=== PATIENT | female | born 1985 | race Caucasian/White ===

== ENCOUNTER → 2020-04-23 14:30 | Outpatient (BNVA) | payer BC, SELFPAY | PROVIDERS: PCP Internal Medicine; Visit Provider Internal Medicine Cardiovascular Disease | DX: Z76.89 Persons encountering health services in other specified circumstances (principal) ==

== ENCOUNTER → 2020-05-21 07:30 | Outpatient (REF) | payer BC, SELFPAY ==
--- NOTE | 2020-05-21 07:34 | CA_ITS ---
Transthoracic Echocardiogram Patient (Last, First, Middle): Cris Spear, Gender: Female Date of : 1985 Age: 35 Procedure Date: 05/21/2020 Procedure Type: Transthoracic Echocardiogram Location: OP Height: 170.18 cm Weight: 62.6 kg BSA: 1.73 m2 Heart Rate: bpm BP: 104 / 62 mmHg Nursing Informatics Specialist: Rosa MD: Saúl Grande MD Machine Turner: Ken Dutton MD Symptoms: Q21.1 PFO BUBBLE STUDY Study Quality: Excellent ECG Rhythm: Sinus Conclusions: - Small PFO noted with saline contrast Findings [facility] Contrast study for right to left shunting is mildly positive. Contrast study for right to left shunting is mildly positive with Valsalva maneuver. Patent foramen ovale detected using by contrast. There is shunt reversal with the release phase of the Valsalva maneuver. Prior Study Comparison Changes noted compared to prior study. PFO confirmed Updated in Other Vendor System with Status of Final Ken Dutton MD electronically signed on 05/22/2020 12:14:11 PM with status of Final
== END ==
LOC: HO.CARD 07:30
PROVIDERS: Visit Provider Internal Medicine Cardiovascular Disease
DX: Q21.1 Atrial septal defect (principal)
CPT/HCPCS: 93308

== ENCOUNTER 2021-10-27 08:53 | Outpatient (REF) | payer BC, SELFPAY ==
[2021-10-27 11:11] LABS: MANUAL DIFF FLAG NO
[2021-10-27 11:30] LABS: Basophils Percent Auto 0.5 % (0-2); Eosinophils Absolute Auto 0.1 X10*3/uL (0.0-0.4); Eosinophils Percent Auto 1.8 % (0-4); Hematocrit 40.1 % (37.0-47.0); Hemoglobin 12.8 g/dl (12.0-16.0); Imm Gran Abs Auto 0.01 X10*3/uL (0.00-0.03); Imm Gran Pct Auto 0.2 % (0.0-0.4); Lymphocytes Absolute Auto 1.9 X10*3/uL (1.2-4.9); Lymphocytes Percent Auto 30.8 % (20-40); Mean Corpuscular HGB Conc 31.9 g/dl (31.0-35.0); Mean Corpuscular Hemoglobin 28.4 pg (27.0-33.0); Mean Corpuscular Volume 88.9 fL (80.0-98.0); Mean Platelet Volume 10.5 fL (9.4-12.3); Monocytes Absolute Auto 0.5 X10*3/uL (0.1-1.2); Monocytes Percent Auto 8.6 % (2-11); Neutrophils Absolute Auto 3.6 x10*3/uL (2.0-8.3); Neutrophils Percent Auto 58.1 % (45-73); Platelet Count 226 X10*3/uL (160-400); Red Blood Count 4.51 X10*6/uL (4.20-5.50); Red Cell Distribution Width 12.5 % (11.0-16.0); White Blood Count 6.3 X10*3/uL (4.8-10.8)
[2021-10-27 11:58] LABS: Anion Gap 12 (12-20); Blood Urea Nitrogen 12 mg/dL (9-16); Calcium 9.3 mg/dL (8.4-10.2); Carbon Dioxide 25 mmol/L (22-29); Chloride 107 mmol/L (96-108); Cholesterol 180 mg/dL; Estimated Glomerular Filt Rate > 60; Glucose Fasting 91 mg/dL (60-99); HDL Cholesterol 72 mg/dL; LDL Cholesterol Calculated 98 mg/dl; Potassium 4.8 mmol/L (3.3-5.1); Sodium 139 mmol/L (135-145); Triglycerides 53 mg/dL
[2021-10-27 12:04] LABS: TSH reflex Free T4 7.89 uIU/mL (0.32-4.0); Vitamin D 25-OH Total 6.5 ng/mL (>30)
[2021-10-27 12:43] LABS: Free T4 (Free Thyroxine) 0.85 ng/dL (0.71-1.85)
== END 2021-10-27 08:54 | disposition home or self-care (01) ==
LOC: HO.HMGCLDS 08:53
PROVIDERS: Visit Provider Internal Medicine
DX: Z00.01 Encounter for general adult medical examination with abnormal findings (principal); Q21.1 Atrial septal defect; Z83.49 Family history of other endocrine, nutritional and metabolic diseases
CPT/HCPCS: 36415; 80048; 80061; 82306; 84439; 84443; 85025

== ENCOUNTER → 2021-11-18 14:04 | Outpatient (BNVA) | payer BC, SELFPAY | PROVIDERS: PCP Internal Medicine; Referring Provider Internal Medicine; Visit Provider Nurse Practitioner Family | DX: Q21.1 Atrial septal defect (principal); R00.2 Palpitations | CPT/HCPCS: 93005 ==

== ENCOUNTER 2023-01-25 11:29 | Outpatient (AMB) | payer BC, SELFPAY ==
--- NOTE | 2023-01-25 11:30 | MHC.OFFVIS ---
Intake Vital Signs 01/25/23 11:31 Height 5 ft 7 in Weight 148 lb 2.41 oz BMI 23.2 BP 106/72 Blood Pressure Location Lt brachial Position Sitting Pulse 69 Pulse Source Monitor Intake Visit Reasons: 1 Year fu per DC Intake Note: 1 year follow up with EKG. Cold Roller Required: No Accompanied by: Self / Same As Patient Allergies penicillin V Allergy (Unknown, Verified 01/25/23 11:33) hives Sulfa (Sulfonamide Antibiotics) Allergy (Unknown, Verified 01/25/23 11:33) hives Medication List - Last Reconciled 01/25/23 by Saúl Grande MD cholecalciferol (vitamin D3) 1,250 mcg PO 2XW 3 months levonorgestrel (Mirena) intrauterine HPI HPI Comments History of Present Illness Details 37-year-old female who works at the [employer] here for palpitations. She has had history of palpitations in the past which were short-lived. Now she is presenting because she has been experiencing palpitations almost daily. In the last week she has noticed multiple episodes. She said she was watching a movie and she started feeling palpitations which she describes as being aware of her heart beating. She said this was last seconds to minutes and will keep recurring for 30 minutes to an hour. No dizziness or syncope. No chest pain or shortness of breath. She is otherwise active and has no exertional symptoms. Her last episode was on Monday. Since then she has not had any more episodes. EKG reviewed showing sinus bradycardia, normal axis, nonspecific ST-T changes. QTC 416 milliseconds. she was referred for echocardiogram and a cardiac event monitor. Echocardiography showed normal biventricular function with concern for [id number] shunting. Cardiac event monitor was normal with occasional premature atrial complexes and sometimes patient's symptoms correlated with the PACs. 01/25/23: She had bubble study which confirmed PFO. She was asymptomatic and had no stroke-like symptoms and was followed by our nurse practitioner Radha. She has no symptoms on follow-up today. In particular no palpitations. She has been exercising and has no exertional issues at this point. [facility] Medical History Family history of thyroid disease in mother Left to right cardiac shunt Palpitations Vitamin D deficiency Surgical History (Updated 01/25/23 @ 11:33 by IVONNE Pollard) No pertinent past surgical history Family History Father HTN (hypertension) History of ascending aorta repair Mother HTN (hypertension) Palpitations Hypothyroidism Social History Household Members Other:: partner Housing: House Alcohol intake: current Alcohol intake frequency: holidays/special occasions only Patient Tobacco Use Status: Never used Tobacco e-Cigarette/Vaping Use: Never Used service: No Current occupational status: employed Review of Systems Const Denies weakness ENT Denies dizziness Card Denies chest pain, Denies chest pain with activity, Denies syncope, Denies rapid heart rate, Denies pedal edema, Denies edema, Denies leg edema, Denies lightheadedness, Denies palpitations, Denies dyspnea, Denies dyspnea on exertion and Denies orthopnea Resp Denies cough, Denies dyspnea and Denies dyspnea on exertion GI Denies hematochezia and Denies change in stool character Musc Denies abnormal gait, Denies muscle cramps, Denies muscle weakness, Denies numbness, Denies radiating pain into limb and Denies tingling Neuro Denies abnormal gait, Denies dizziness, Denies syncope, Denies numbness, Denies tingling and Denies weakness Endo Denies palpitations Physical Exam Vital Signs: Last Vital Signs Pulse 69 01/25/23 11:31 BP 106/72 01/25/23 11:31 BMI result Body Mass Index 23.2 GENERAL APPEARANCE: in no acute distress, well developed, well nourished. NECK/THYROID: no carotid bruit, no jugular venous distention. SKIN: no suspicious lesions, warm and dry. HEART: no murmurs, regular rate and rhythm, S1, S2 normal. LUNGS: clear to auscultation bilaterally. ABDOMEN: normal, bowel sounds present, soft, nontender, nondistended. EXTREMITIES: no clubbing, cyanosis, or edema. PERIPHERAL PULSES: equal. NEUROLOGIC: nonfocal, alert and oriented. Office Procedures EKG Details: Normal sinus rhythm 69 beats per minute, QTC 439 milliseconds. [id number], Complete Assessment & Plan Assessment & Plan (1) Palpitations: Code(s): R00.2 - Palpitations Plan Pleasant 37 year female who is here for follow-up. She was seen for palpitations and her workup revealed premature atrial complexes. This was conservatively managed and she has improved and has no symptoms on follow-up. She was found to have an asymptomatic PFO. Clinically stable and has no symptoms. She can follow up with us as needed. Thank you for allowing me to participate in the care of your patient. Please feel free to contact me if you have any questions. Coding Level of Care Code Est Pt Level 2 (18221) Diagnoses Palpitations R00.2 CPT Codes EKG - CPT: 00861-[id number], Complete ([id number])
[2023-01-25 11:31] VITALS: BP 106/72; PULSE 69; BMI 23.2
== END 2023-01-25 11:53 | disposition home or self-care (01) ==
PROVIDERS: Visit Provider Internal Medicine Cardiovascular Disease
DX: R00.2 Palpitations (principal)
CPT/HCPCS: 93010; 99212

== ENCOUNTER → 2023-01-25 11:29 | Outpatient (BNVA) | payer BC, SELFPAY | PROVIDERS: Visit Provider Internal Medicine Cardiovascular Disease | DX: R00.2 Palpitations (principal) | CPT/HCPCS: 93005 ==

== ENCOUNTER 2023-09-11 12:52 | Outpatient (AMB) | payer BC, SELFPAY ==
[2023-09-11 13:07] VITALS: BP 116/82; PULSE 72; O2SAT 99; BMI 25.1
--- NOTE | 2023-09-11 13:07 | MHC.PC.OV ---
Vital Signs 09/11/23 13:07 Height 5 ft 7 in Weight 160 lb 4 oz BMI 25.1 BP 116/82 Blood Pressure Location Rt brachial Position Sitting Pulse 72 Pulse Source Pulse Oximeter Pulse Oximetry (%) 99 Oxygen Delivery Method Room Air Intake Visit Reasons: Think thyroid has another nodule / hypothyroidism Intake Note: Pt is here today thyroid concerns, had an ultrasound sound last November. Pt states symptoms worsen. Allergies penicillin V Allergy (Unknown, Verified 09/11/23 14:30) hives Sulfa (Sulfonamide Antibiotics) Allergy (Unknown, Verified 09/11/23 14:30) hives Medication List - Last Reconciled 09/11/23 by Carol Mayes MD cholecalciferol (vitamin D3) 1,250 mcg PO 2XW 3 months levonorgestrel (Mirena) intrauterine Tobacco use date assessed: 09/11/23 Dental Screening Dental Screen Date: 09/11/23 Did you have a dental visit in the last 12 months?: Yes Did you have a dental problem in the last 6 months where you did not have access to dental care?: No Was dental information given to patient?: Patient has dentist HPI Think thyroid has another nodule / hypothyroidism HPI Details 38-year-old lady here today complaining of increased fatigue, fluctuating weight, dry skin, recurrent joint stiffness and pain accompanied by occasional hoarseness of voice which has been present now for the last several months. Patient has a thyroid nodule on the right with last ultrasound done December 13 showing a predominantly solid, isoechoic right thyroid nodule measuring approximately 1.8 x 1.5 x 1.9 cm, with a hypervascular thyroid gland noted, suggestive of thyroiditis. Her thyroid levels 11/28/2022 showed a TSH is 7.98, with free T4 0.9 and a free T3 at 2.9. She has strong family history for thyroid disorder, mother and sister both with hypothyroidism [facility] Medical History Nodule of right lobe of thyroid gland Vitamin D deficiency Family history of thyroid disease in mother Left to right cardiac shunt Palpitations Surgical History No pertinent past surgical history Family History Father HTN (hypertension) History of ascending aorta repair Mother HTN (hypertension) Palpitations Hypothyroidism Social History Household Members Other:: partner Housing: House Alcohol intake: current Alcohol intake frequency: holidays/special occasions only Patient Tobacco Use Status: Never used Tobacco e-Cigarette/Vaping Use: Never Used service: No Current occupational status: employed Cognitive needs: No Hearing needs: No Vision needs: No Questionnaire PHQ-9 Over the last 2 weeks, how often have you been bothered by any of the following problems? 1. Little interest or pleasure in doing things: not at all 2. Feeling down, depressed, or hopeless: not at all 3. Trouble falling or staying asleep, or sleeping too much: not at all 4. Feeling tired or having little energy: more than half the days 5. Poor appetite or overeating: not at all 6. Feeling bad about yourself - or that you are a failure or have let yourself or your family down: not at all 7. Trouble concentrating on things, such as reading the newspaper or watching television: not at all 8. Moving or speaking so slowly that other people could have noticed. Or the opposite - being so fidgety or restless that you have been moving around a lot more than usual: not at all 9. Thoughts that you would be better off or of hurting yourself in some way: not at all Total score: 2 Depression Screening Interpretation: Negative Depression Screening Done: Yes 12510 - PHQ-9 Billing: Yes Source: Developed by Drs. Memo Blanco, Hayley Vines, Ney Ngo and colleagues, with an educational jody from [employer]. Thrive Questionnaire Date Thrive assessed: 09/11/23 I am a: Patient What is your living situation today?: I have a steady place to live Within the past 12 months, did the food you bought not last and you didn't have the money to get more?: Never true Within the past 12 months, did you worry whether your food would run out before you got money to buy more?: Never true Do you have trouble paying for medicines?: No Do you have trouble getting transportation to medical appointments?: No Do you have trouble paying your heating and electricity bill?: No Do you have trouble taking care of your child, family member or friend?: No Do you have trouble with day-to-day activities such as bathing, preparing meals, shopping, managing finances, etc.?: No Are you currently unemployed and looking for a job?: No Are you interested in more education?: No Please select the resources that you would like help with: None Currently or been in a relationship where the following occur: no concerns reported THRIVE Score: 0 CHEIKH-7 AMB Questionnaire CHEIKH-7 Date CHEIKH - 7 assessed: 09/11/23 Feeling nervous, anxious, or on edge: 0 = Not at all Not being able to stop or control worryin = Not at all Worrying too much about different things: 0 = Not at all Trouble relaxin = Not at all Being so restless that it is hard to sit still: 0 = Not at all Becoming easily annoyed or irritable: 0 = Not at all Feeling afraid as if something awful might happen: 0 = Not at all Total CHEIKH-7 score (0-4 normal; 5-9 mild; 10-14 moderate; 15-21 severe): 0 Source: Developed by Drs. Memo Blanco, Hayley Vines, Ney Ngo and colleagues, with an educational jody from [employer]. CHEIKH-7 Assessment Billing CHEIKH-7 Assessment Tool: CHEIKH-7 Assessment 60990 Review of Systems Const Denies weakness ENT Denies dizziness Card Denies chest pain, Denies syncope, Denies rapid heart rate, Denies edema, Denies lightheadedness, Denies palpitations, Denies dyspnea and Denies dyspnea on exertion Resp Denies cough, Denies dyspnea and Denies dyspnea on exertion GI Denies change in stool character Reports no additional complaints Musc Denies abnormal gait, Denies muscle cramps, Denies muscle weakness, Denies numbness, Denies radiating pain into limb and Denies tingling Skin/Breast Reports as per HPI Neuro Denies abnormal gait, Denies dizziness, Denies syncope, Denies numbness, Denies tingling and Denies weakness Psych Reports no additional complaints Endo Denies palpitations Janak/Lymph Reports no additional complaints Aller/Immun Reports no additional complaints Physical exam (Primary Care) Vital Signs: Last Vital Signs Pulse 72 09/11/23 13:07 BP 116/82 09/11/23 13:07 Pulse Ox 99 09/11/23 13:07 Oxygen Delivery Method Room Air 09/11/23 13:07 BMI result Body Mass Index 25.1 Tobacco/Smoking Status: Tobacco use Status Tobacco use date assessed 09/11/23 09/11/23 13:09 Patient Tobacco Use Status Never used Tobacco 09/11/23 13:09 e-Cigarette/Vaping Use Never Used 09/11/23 13:09 PHQ-9: PHQ-9 Score PHQ-9: Total score 2 09/11/23 14:09 Depression Screening Interpretation: Negative Thrive Assessment: Date of Thrive Assessment Date Thrive assessed 09/11/23 09/11/23 13:11 Currently or been in a relationship where the following occur: no concerns reported Const Other: Alert oriented x3, no acute distress noted ambulatory normal gait Orientation/consciousness: patient oriented x3 HENMT Mouth: Normal oral and palatal mucosa present, oropharynx normal and moist mucous membranes Eyes General: appearance normal, both eyes and all related structures Neck Other: Palpable nontender nodule on right side of thyroid gland Resp Auscultation: clear to auscultation bilaterally Cardio Other: S1-S2 present regular rate and rhythm GI Palpation (GI): Soft to palpation, nontender, no guarding and no masses Skin General skin exam: dry skin Neuro General: patient oriented x3, gait normal, tone normal, moves all extremities and no focal motor deficits Extrem General: Yes full ROM, Yes no joint enlargement, Yes no clubbing, cyanosis or edema and Yes normal gait Psych Appearance: grossly normal and well kempt Mental Status: mental status grossly normal Speech and movement: Normal speech and movement present Affect: normal affect Attitude: cooperative Thought process: Normal thought process present Thought content: Normal thought content present Assessment and Plan Assessment & Plan (1) Family history of thyroid disease in mother: Code(s): Z83.49 - Family history of other endocrine, nutritional and metabolic diseases (2) Nodule of right lobe of thyroid gland: Code(s): E04.1 - Nontoxic single thyroid nodule (3) Arthralgia: Code(s): M25.50 - Pain in unspecified joint (4) Fatigue: Code(s): R53.83 - Other fatigue (5) Dry skin: Code(s): L85.3 - Xerosis cutis (6) Fluctuation of weight: Code(s): R68.89 - Other general symptoms and signs (7) Hoarseness of voice: Code(s): R49.0 - Dysphonia Plan Repeat ultrasound of thyroid ordered as well as TSH, free T4 and free T3 level referral to endocrine at [facility] also ordered for further evaluation management as patient has strong family history for thyroid disorders. Orders: Orders US thyroid Today E04.1 - Nontoxic single thyroid nodule, L85.3 - Xerosis cutis, M25.50 - Pain in unspecified joint, R53.83 - Other fatigue, Z83.49 - Family history of other endocrine, nutritional and metabolic diseases Thyroid Stimulating Hormone Today E04.1 - Nontoxic single thyroid nodule, L85.3 - Xerosis cutis, M25.50 - Pain in unspecified joint, R53.83 - Other fatigue, Z83.49 - Family history of other endocrine, nutritional and metabolic diseases Free T4 (Free Thyroxine) Today E04.1 - Nontoxic single thyroid nodule, L85.3 - Xerosis cutis, M25.50 - Pain in unspecified joint, R53.83 - Other fatigue, Z83.49 - Family history of other endocrine, nutritional and metabolic diseases Triiodothyronine T3 Free Today E04.1 - Nontoxic single thyroid nodule, L85.3 - Xerosis cutis, M25.50 - Pain in unspecified joint, R53.83 - Other fatigue, Z83.49 - Family history of other endocrine, nutritional and metabolic diseases Thyroid Peroxidase Antibodies Today E04.1 - Nontoxic single thyroid nodule, R49.0 - Dysphonia, R68.89 - Other general symptoms and signs, Z83.49 - Family history of other endocrine, nutritional and metabolic diseases Referrals Endocrinology Referral E04.1 - Nontoxic single thyroid nodule, L85.3 - Xerosis cutis, M25.50 - Pain in unspecified joint, R49.0 - Dysphonia, R53.83 - Other fatigue, R68.89 - Other general symptoms and signs, Z83.49 - Family history of other endocrine, nutritional and metabolic diseases Coding Level of Care Code Est Pt Level 3 (97796) Diagnoses Family history of thyroid disease in mother Z83.49 Nodule of right lobe of thyroid gland E04.1 Arthralgia M25.50 Fatigue R53.83 Dry skin L85.3 Fluctuation of weight R68.89 Hoarseness of voice R49.0 Additional Codes CHEIKH-7 Assessment Billing - CHEIKH-7 Assessment Tool: CHEIKH-7 Assessment 36555 ([id number])
== END 2023-09-11 16:00 | disposition home or self-care (01) ==
PROVIDERS: PCP Internal Medicine; Visit Provider Internal Medicine
DX: Z83.49 Family history of other endocrine, nutritional and metabolic diseases (principal); E04.1 Nontoxic single thyroid nodule; M25.50 Pain in unspecified joint; R53.83 Other fatigue; L85.3 Xerosis cutis; R68.89 Other general symptoms and signs; R49.0 Dysphonia
CPT/HCPCS: 99213

== ENCOUNTER 2023-09-11 14:11 | Outpatient (REF) | payer BC, SELFPAY ==
[2023-09-11 17:10] LABS: Thyroid Stimulating Hormone 5.12 uIU/mL (0.32-4.0)
[2023-09-12 18:04] LABS: Thyroid Peroxidase Antibodies >900 IU/mL (<9)
== END 2023-09-11 14:12 | disposition home or self-care (01) ==
LOC: HO.HMGCLDS 14:11
PROVIDERS: PCP Internal Medicine; Visit Provider Internal Medicine
DX: E04.1 Nontoxic single thyroid nodule (principal); M25.50 Pain in unspecified joint; R53.83 Other fatigue; L85.3 Xerosis cutis; R49.0 Dysphonia; R68.89 Other general symptoms and signs; Z83.49 Family history of other endocrine, nutritional and metabolic diseases
CPT/HCPCS: 36415; 84439; 84443; 84481; 86376

== ENCOUNTER 2023-09-21 11:20 | Outpatient (REF) | payer BC, SELFPAY ==
--- NOTE | ~2023-09-21 | US_ITS ---
EXAMINATION: US THYROID CLINICAL INFORMATION: Nontoxic single thyroid nodule. COMPARISON: None available. TECHNIQUE: Linear transducer grayscale and color Doppler examination with attention to the region of the thyroid. FINDINGS: SIZE: Measurements of the thyroid lobes and nodules are given in sagittal, anteroposterior and transverse dimensions, respectively. Right Thyroid Lobe: 5.53 x 2.1 x 2.1 cm, volume 12.3 mL. Parenchyma: The gland echotexture is heterogeneous. Thyroid vascularity is increased. Left Thyroid Lobe: 4.9 x 1.6 x 1.8 cm, volume 7.5 mL. Parenchyma: The gland echotexture is heterogeneous. Thyroid vascularity is increased. Isthmus: 0.35 cm in maximum AP dimension. Estimated total number of nodules greater than or equal to 1 cm: 1. [employer]ating [employer] Operator nodules are described as follows: 1. Location: Right mid/inferior. Size: 2.0 x 1.2 x 2.1 cm, volume 2.6 mL. Nodule characteristics: Composition: Solid/almost completely solid (2). Echogenicity: Hypoechoic (2). Shape: Not taller than wide (0). Margins: Smooth (0). Echogenic Foci: Punctate echogenic foci (3). ACR TI-RADS total points: 7. ACR TI-RADS category: 5. NODES: No lymphadenopathy is seen in the tissue surrounding the thyroid gland. ADDITIONAL FINDINGS: Inferior to the right thyroid, there is a nonvascular 9 mm rounded area seen which could represent a small lymph node or possibly a parathyroid. US/US thyroid IMPRESSION: A 2 cm ACR TI-RADS category 5 mass in the right thyroid. Biopsy is indicated. ACR TI-RADS RECOMMENDATION REFERENCE: Ultrasound-guided fine-needle aspiration, followup ultrasound, no further follow up. * TR1 (0 point) and TR2 (2 points): No FNA or follow up. * TR3 (3 points): FNA if more than or equal to 2.5 cm in maximum dimension, followup ultrasound in 1, 3 and 5 years if 1.5 to 2.4 cm in maximum dimension. * TR4 (4-6 points): FNA if more than or equal to 1.5 cm in maximum dimension, followup ultrasound in 1, 2, 3 and 5 years if 1 to 1.4 cm in maximum dimension. * TR5 (more than or equal to 7 points): FNA if more than or equal to 1 cm in maximum dimension, followup ultrasound every year for 5 years if 0.5 to 0.9 cm in maximum dimension. * TR3, TR4 or TR5 nodules that are below the size threshold for followup receive no follow up.
== END 2023-09-21 11:21 | disposition home or self-care (01) ==
LOC: HO.HMGCX 11:20
PROVIDERS: PCP Internal Medicine; Visit Provider Internal Medicine
DX: E04.1 Nontoxic single thyroid nodule (principal); M25.50 Pain in unspecified joint; R53.83 Other fatigue; L85.3 Xerosis cutis; Z83.49 Family history of other endocrine, nutritional and metabolic diseases
CPT/HCPCS: 76536

== ENCOUNTER 2024-02-19 09:10 | Outpatient (AMB) | payer BC, SELFPAY ==
[2024-02-19 09:50] VITALS: BP 122/80; PULSE 75; O2SAT 100; BMI 24.4
--- NOTE | 2024-02-19 09:50 | MHC.PC.OV ---
Vital Signs 02/19/24 09:50 Height 5 ft 7 in Weight 156 lb BMI 24.4 BP 122/80 Blood Pressure Location Lt brachial Position Standing Pulse 75 Pulse Source Pulse Oximeter Pulse Oximetry (%) 100 Oxygen Delivery Method Room Air Intake Visit Reasons: Discuss medication for Hasihmoto's Disease Intake Note: Pt is here today to discuss medication for Cheryl's disease: Also c/o lower back pain shooting down back of Rt leg x2mo. Allergies penicillin V Allergy (Unknown, Verified 02/24/24 00:44) hives Sulfa (Sulfonamide Antibiotics) Allergy (Unknown, Verified 02/24/24 00:44) hives Medication List - Last Reconciled 02/24/24 by Carol Mayes MD cholecalciferol (vitamin D3) 50 mcg PO DAILY levonorgestrel (Mirena) intrauterine Tobacco use date assessed: 02/19/24 Dental Screening Dental Screen Date: 02/19/24 Did you have a dental visit in the last 12 months?: Yes Did you have a dental problem in the last 6 months where you did not have access to dental care?: No Was dental information given to patient?: Patient has dentist HPI Discuss medication for Hasihmoto's Disease HPI Details 38-year-old lady here today for follow-up. She has been complaining of having occasional of episodes of feeling tired, sometimes has to force herself to get a bed to exercises in the morning. She has history of thyroid nodule, right nodule was recently biopsied which showed benign findings. She is also complaining of pain across her sacroiliac area, present now for the last several weeks. Denies any history of trauma, pain sometimes worse when she starts walking around or when she lifts anything heavy. [facility] Medical History (Updated 02/19/24 @ 10:21 by Carol Mayes MD) Autoimmune thyroiditis Multinodular goiter Subclinical hypothyroidism Chronic right SI joint pain Nodule of right lobe of thyroid gland Vitamin D deficiency Family history of thyroid disease in mother Left to right cardiac shunt Palpitations Surgical History (Updated 02/19/24 @ 10:21 by Carol Mayes MD) History of fine needle aspiration with imaging guidance No pertinent past surgical history Family History Father HTN (hypertension) History of ascending aorta repair Mother HTN (hypertension) Palpitations Hypothyroidism Social History Household Members Other:: partner Housing: House Alcohol intake: current Alcohol intake frequency: holidays/special occasions only Patient Tobacco Use Status: Never used Tobacco e-Cigarette/Vaping Use: Never Used service: No Current occupational status: employed Cognitive needs: No Hearing needs: No Vision needs: No Questionnaire PHQ-9 Over the last 2 weeks, how often have you been bothered by any of the following problems? 1. Little interest or pleasure in doing things: not at all 2. Feeling down, depressed, or hopeless: not at all 3. Trouble falling or staying asleep, or sleeping too much: nearly every day 4. Feeling tired or having little energy: nearly every day 5. Poor appetite or overeating: not at all 6. Feeling bad about yourself - or that you are a failure or have let yourself or your family down: not at all 7. Trouble concentrating on things, such as reading the newspaper or watching television: several days 8. Moving or speaking so slowly that other people could have noticed. Or the opposite - being so fidgety or restless that you have been moving around a lot more than usual: not at all 9. Thoughts that you would be better off or of hurting yourself in some way: not at all Total score: 7 Depression Screening Interpretation: Negative Depression Screening Done: Yes 37819 - PHQ-9 Billing: Yes Source: Developed by Drs. Memo Blanco, Hayley Vines, Ney Ngo and colleagues, with an educational jody from [employer]. Thrive Questionnaire Date Thrive assessed: 02/14/24 I am a: Patient What is your living situation today?: I have a steady place to live Within the past 12 months, did the food you bought not last and you didn't have the money to get more?: Never true Within the past 12 months, did you worry whether your food would run out before you got money to buy more?: Never true Do you have trouble paying for medicines?: No Do you have trouble getting transportation to medical appointments?: No Do you have trouble paying your heating and electricity bill?: No Do you have trouble taking care of your child, family member or friend?: No Do you have trouble with day-to-day activities such as bathing, preparing meals, shopping, managing finances, etc.?: No Are you currently unemployed and looking for a job?: No Are you interested in more education?: No Currently or been in a relationship where the following occur: No concerns reported THRIVE Score: 0 AUDIT C Alcohol Use Questionnaire (AUDIT-C) 1. How often do you have a drink containing alcohol?: 2-3 times a week 2. How many drinks containing alcohol do you have on a typical day when you are drinking?: 1 or 2 3. How often do you have six or more drinks on one occasion?: Never Total Score: 3 CHEIKH-7 AMB Questionnaire CHEIKH-7 Date CHEIKH - 7 assessed: 09/11/23 Feeling nervous, anxious, or on edge: 0 = Not at all Not being able to stop or control worryin = Not at all Worrying too much about different things: 0 = Not at all Trouble relaxin = Not at all Being so restless that it is hard to sit still: 0 = Not at all Becoming easily annoyed or irritable: 0 = Not at all Feeling afraid as if something awful might happen: 0 = Not at all Total CHEIKH-7 score (0-4 normal; 5-9 mild; 10-14 moderate; 15-21 severe): 0 Source: Developed by Drs. Memo Blanco, Hayley Vines, Ney Ngo and colleagues, with an educational jody from [employer]. CHEIKH-7 Assessment Billing CHEIKH-7 Assessment Tool: CHEIKH-7 Assessment 64684 Review of Systems Const Denies weakness ENT Denies dizziness Card Denies chest pain, Denies syncope, Denies rapid heart rate, Denies edema, Denies lightheadedness, Denies palpitations, Denies dyspnea and Denies dyspnea on exertion Resp Denies cough, Denies dyspnea and Denies dyspnea on exertion GI Denies change in stool character Reports no additional complaints Musc Denies abnormal gait, Denies muscle cramps, Denies muscle weakness, Denies numbness, Denies radiating pain into limb and Denies tingling Skin/Breast Reports as per HPI Neuro Denies abnormal gait, Denies dizziness, Denies syncope, Denies numbness, Denies tingling and Denies weakness Psych Reports no additional complaints Endo Denies palpitations Janak/Lymph Reports no additional complaints Aller/Immun Reports no additional complaints Physical exam (Primary Care) Vital Signs: Last Vital Signs Pulse 75 02/19/24 09:50 BP 122/80 02/19/24 09:50 Pulse Ox 100 02/19/24 09:50 Oxygen Delivery Method Room Air 02/19/24 09:50 BMI result Body Mass Index 24.4 Tobacco/Smoking Status: Tobacco use Status Tobacco use date assessed 02/19/24 02/19/24 09:56 Patient Tobacco Use Status Never used Tobacco 02/19/24 09:56 e-Cigarette/Vaping Use Never Used 02/19/24 09:56 PHQ-9: PHQ-9 Score PHQ-9: Total score 7 02/19/24 10:21 Depression Screening Interpretation: Negative Thrive Assessment: Date of Thrive Assessment Date Thrive assessed 02/14/24 02/19/24 09:56 Currently or been in a relationship where the following occur: No concerns reported Const Other: Alert oriented x3, no acute distress noted ambulatory normal gait Orientation/consciousness: patient oriented x3 HENMT Mouth: Normal oral and palatal mucosa present, oropharynx normal and moist mucous membranes Eyes General: appearance normal, both eyes and all related structures Neck Other: Palpable nontender nodule on right side of thyroid gland Resp Auscultation: clear to auscultation bilaterally Cardio Other: S1-S2 present regular rate and rhythm GI Palpation (GI): Soft to palpation, nontender, no guarding and no masses Skin General skin exam: dry skin Neuro General: patient oriented x3, gait normal, tone normal, moves all extremities and no focal motor deficits Extrem General: Yes full ROM, Yes no joint enlargement, Yes no clubbing, cyanosis or edema and Yes normal gait Psych Appearance: grossly normal and well kempt Mental Status: mental status grossly normal Speech and movement: Normal speech and movement present Affect: normal affect Attitude: cooperative Thought process: Normal thought process present Thought content: Normal thought content present Assessment and Plan Assessment & Plan (1) Chronic right SI joint pain: Code(s): M53.3 - Sacrococcygeal disorders, not elsewhere classified; G89.29 - Other chronic pain Plan: X-ray of sacroiliac joint 1-2 views ordered. Currently undergoing acupuncture therapy in [place] has had 2 sessions already which seems to be helping. Had physical therapy in the past which has not afforded any relief. (2) Subclinical hypothyroidism: Code(s): E03.8 - Other specified hypothyroidism Plan: Will continue to monitor levels (3) Multinodular goiter: Code(s): E04.2 - Nontoxic multinodular goiter (4) Autoimmune thyroiditis: Code(s): E06.3 - Autoimmune thyroiditis Plan: Reviewed recent thyroid levels which showed mildly elevated TSH with normal free T4 and free T3. Patient however complaining of fatigue, difficulty with losing weight despite adhering to healthy eating habits and getting regular exercise. Will continue to monitor thyroid levels (5) History of fine needle aspiration with imaging guidance: Comment: Of left thyroid and right thyroid lobe nodule, benign results Code(s): Z98.890 - Other specified postprocedural states Plan: Benign results on biopsy Orders: Orders XR sacroiliac joint 1-2V 02/19/24 G89.29 - Other chronic pain, M53.3 - Sacrococcygeal disorders, not elsewhere classified Coding Level of Care Code Est Pt Level 4 (66983) Complex EM visit Add On G2211 Diagnoses Chronic right SI joint pain M53.3; G89.29 Subclinical hypothyroidism E03.8 Multinodular goiter E04.2 Autoimmune thyroiditis E06.3 History of fine needle aspiration with imaging guidance Z98.890 Additional Codes CHEIKH-7 Assessment Billing - CHEIKH-7 Assessment Tool: CHEIKH-7 Assessment 00272 ([id number])
== END 2024-02-19 10:19 | disposition home or self-care (01) ==
PROVIDERS: PCP Internal Medicine; Visit Provider Internal Medicine
DX: M53.3 Sacrococcygeal disorders, not elsewhere classified (principal); G89.29 Other chronic pain; E03.8 Other specified hypothyroidism; E04.2 Nontoxic multinodular goiter; E06.3 Autoimmune thyroiditis; Z98.890 Other specified postprocedural states
CPT/HCPCS: 99214

== ENCOUNTER 2024-02-19 10:19 | Outpatient (REF) | payer BC, SELFPAY ==
--- NOTE | ~2024-02-19 | XR_ITS ---
EXAMINATION: XR SACROILIAC JOINTS CLINICAL INFORMATION: Sacrococcygeal disorders, not elsewhere calcified. COMPARISON: Radiographs of the sacrum and coccyx dated 06/08/2016. TECHNIQUE: AP and bilateral Judet views of the sacroiliac joints FINDINGS: Bones and soft tissues are normal. No fracture. Alignment is anatomic. Sacroiliac joint spaces are well-maintained without erosions or surrounding sclerosis. An intrauterine device is noted. XR/XR sacroiliac joint 1-2V IMPRESSION: Normal sacroiliac joints. Electronically signed by: Darrion Rabago MD 03/14/2024 11:46 AM EDT Workstation: -WS
== END 2024-02-19 10:20 | disposition home or self-care (01) ==
LOC: HO.HMGCX 10:19
PROVIDERS: PCP Internal Medicine; Visit Provider Internal Medicine
DX: M53.3 Sacrococcygeal disorders, not elsewhere classified (principal); G89.29 Other chronic pain
CPT/HCPCS: 72200

== ENCOUNTER 2024-12-04 11:50 | Outpatient (AMB) | payer BC, SELFPAY ==
--- NOTE | 2024-12-04 12:30 | MHC.PC.OV ---
Vital Signs 12/04/24 12:32 Height 5 ft 7 in Weight 162 lb BMI 25.4 BP 100/70 Blood Pressure Location Rt brachial Position Sitting Respiration 16 Pulse 63 Pulse Source Pulse Oximeter Temp 97.9 F Temp Source Oral Pulse Oximetry (%) 100 Oxygen Delivery Method Room Air Intake Visit Reasons: Annual PE Intake Note: Pt is here today for her PE: last papsmear 09/27/21, mammogram 02/21/24 Allergies penicillin V Allergy (Unknown, Verified 12/04/24 12:51) hives Sulfa (Sulfonamide Antibiotics) Allergy (Unknown, Verified 12/04/24 12:51) hives Medication List - Last Reconciled 12/04/24 by Carol Mayes MD cholecalciferol (vitamin D3) 50 mcg PO DAILY levonorgestrel (Liletta) intrauterine levothyroxine (Synthroid) 50 mcg PO DAILY Tobacco use date assessed: 12/04/24 Dental Screening Dental Screen Date: 12/04/24 Did you have a dental visit in the last 12 months?: Yes Did you have a dental problem in the last 6 months where you did not have access to dental care?: No Was dental information given to patient?: Patient has dentist HPI Annual PE HPI Details 39-year-old lady with history of subclinical hypothyroidism and multinodular thyroid gland, followed at [facility] endocrine clinic, here today for her physical exam. She has been feeling well on current dose of thyroid medication. She is up-to-date with her cervical cancer screening, sees [facility] at of [place], where she also had her IUD inserted. Up-to-date with her breast cancer screening, last done earlier this year. She has been feeling well with no complaints at present time. Works out 2 to 3 times a week in the gym and does weight training [facility] Medical History (Updated 12/04/24 @ 13:06 by Carol Mayes MD) Autoimmune thyroiditis Multinodular goiter Subclinical hypothyroidism Chronic right SI joint pain Nodule of right lobe of thyroid gland Vitamin D deficiency Family history of thyroid disease in mother Left to right cardiac shunt Palpitations Surgical History History of fine needle aspiration with imaging guidance No pertinent past surgical history Family History Father HTN (hypertension) History of ascending aorta repair Mother HTN (hypertension) Palpitations Hypothyroidism Social History Household Members Other:: partner Housing: House Alcohol intake: current Alcohol intake frequency: holidays/special occasions only Patient Tobacco Use Status: Never used Tobacco e-Cigarette/Vaping Use: Never Used service: No Current occupational status: employed Cognitive needs: No Hearing needs: No Vision needs: No Female Reproductive History Menstrual control method: progestin IUCD Questionnaire PHQ-9 Over the last 2 weeks, how often have you been bothered by any of the following problems? 1. Little interest or pleasure in doing things: not at all 2. Feeling down, depressed, or hopeless: not at all 3. Trouble falling or staying asleep, or sleeping too much: not at all 4. Feeling tired or having little energy: not at all 5. Poor appetite or overeating: not at all 6. Feeling bad about yourself - or that you are a failure or have let yourself or your family down: not at all 7. Trouble concentrating on things, such as reading the newspaper or watching television: not at all 8. Moving or speaking so slowly that other people could have noticed. Or the opposite - being so fidgety or restless that you have been moving around a lot more than usual: not at all 9. Thoughts that you would be better off or of hurting yourself in some way: not at all Total score: 0 Depression Screening Interpretation: Negative Depression Screening Done: Yes 73287 - PHQ-9 Billing: Yes Source: Developed by Drs. Memo Blanco, Hayley Vines, Ney Ngo and colleagues, with an educational jody from [employer]. Thrive Questionnaire Date Thrive assessed: 12/04/24 I am a: Patient What is your living situation today?: I have a steady place to live Within the past 12 months, did the food you bought not last and you didn't have the money to get more?: Never true Within the past 12 months, did you worry whether your food would run out before you got money to buy more?: Never true Do you have trouble paying for medicines?: No Do you have trouble getting transportation to medical appointments?: No Do you have trouble paying your heating and electricity bill?: No Do you have trouble taking care of your child, family member or friend?: No Do you have trouble with day-to-day activities such as bathing, preparing meals, shopping, managing finances, etc.?: No Are you currently unemployed and looking for a job?: No Are you interested in more education?: No Please select the resources that you would like help with: None Currently or been in a relationship where the following occur: No concerns reported THRIVE Score: 0 AUDIT C Alcohol Use Questionnaire (AUDIT-C) 1. How often do you have a drink containing alcohol?: 2-3 times a week 2. How many drinks containing alcohol do you have on a typical day when you are drinking?: 1 or 2 3. How often do you have six or more drinks on one occasion?: Never Total Score: 3 CHEIKH-7 AMB Questionnaire CHEIKH-7 Date CHEIKH - 7 assessed: 12/04/24 Feeling nervous, anxious, or on edge: 0 = Not at all Not being able to stop or control worryin = Not at all Worrying too much about different things: 0 = Not at all Trouble relaxin = Not at all Being so restless that it is hard to sit still: 0 = Not at all Becoming easily annoyed or irritable: 0 = Not at all Feeling afraid as if something awful might happen: 0 = Not at all Total CHEIKH-7 score (0-4 normal; 5-9 mild; 10-14 moderate; 15-21 severe): 0 Source: Developed by Drs. Memo Blanco, Hayley Vines, Ney Ngo and colleagues, with an educational jody from [employer]. Review of Systems Const Reports no additional complaints Eyes Reports no additional complaints ENT Denies dizziness Card Denies chest pain, Denies syncope, Denies rapid heart rate, Denies edema, Denies lightheadedness, Denies palpitations, Denies dyspnea and Denies dyspnea on exertion Resp Denies cough, Denies dyspnea and Denies dyspnea on exertion GI Reports no additional complaints Reports no additional complaints Musc Denies abnormal gait, Denies muscle cramps, Denies muscle weakness, Denies numbness, Denies radiating pain into limb and Denies tingling Skin/Breast Reports as per HPI Neuro Denies abnormal gait, Denies dizziness, Denies syncope, Denies numbness and Denies tingling Psych Reports no additional complaints Endo Denies palpitations Janak/Lymph Reports no additional complaints Aller/Immun Reports no additional complaints Physical exam (Primary Care) Vital Signs: Last Vital Signs Temp 97.9 F 12/04/24 12:32 Pulse 63 12/04/24 12:32 Resp 16 12/04/24 12:32 BP 100/70 12/04/24 12:32 Pulse Ox 100 12/04/24 12:32 Oxygen Delivery Method Room Air 12/04/24 12:32 BMI result Body Mass Index 25.4 Tobacco/Smoking Status: Tobacco use Status Tobacco use date assessed 12/04/24 12/04/24 12:32 Patient Tobacco Use Status Never used Tobacco 12/04/24 12:32 e-Cigarette/Vaping Use Never Used 12/04/24 12:32 PHQ-9: PHQ-9 Score PHQ-9: Total score 0 12/04/24 12:32 Depression Screening Interpretation: Negative Thrive Assessment: Date of Thrive Assessment Date Thrive assessed 12/04/24 12/04/24 12:32 Currently or been in a relationship where the following occur: No concerns reported Advance Care Planning discussion: Completed/Scanned Date of discussion: 12/04/24 Who was present: Patient Forms completed: Health Care Proxy Time spent: 16-45 minutes Actual minutes spent: 2 Const Other: Alert oriented x3, no acute distress noted ambulatory normal gait HENMT Mouth: Normal oral and palatal mucosa present, oropharynx normal and moist mucous membranes Eyes General: appearance normal, both eyes and all related structures Neck Other: Palpable nontender nodule on right side of thyroid gland Resp Auscultation: clear to auscultation bilaterally Cardio Other: S1-S2 present regular rate and rhythm GI Palpation (GI): Soft to palpation, nontender, no guarding and no masses General: Yes no CVA tenderness and Yes deferred (Goes to [facility] at [place]) Back/Spine/Pelvis Back: no CVA tenderness and No back tenderness Skin General skin exam: dry skin Neuro General: gait normal, tone normal, moves all extremities and no focal motor deficits Extrem General: Yes full ROM, Yes no joint enlargement, Yes no clubbing, cyanosis or edema and Yes normal gait Psych Appearance: grossly normal and well kempt Mental Status: mental status grossly normal Speech and movement: Normal speech and movement present Affect: normal affect Attitude: cooperative Thought process: Normal thought process present Thought content: Normal thought content present Coding Level of Care Code Sarahy Pt Prev Care 40-64y([id number]) Diagnoses Annual visit for general adult medical examination with abnormal findings Z00.01 Subclinical hypothyroidism E03.8 Vitamin D deficiency E55.9 Encounter for counseling regarding advance directives Z71.89 Additional Codes PHQ-9 - 78638 - PHQ-9 Billing: Yes ([id number]) Vital Signs *Quality* - Advance Care Planning discussion: Completed/Scanned ([id number]) Vital Signs *Quality* - Time spent: 16-45 minutes ([id number]) Assessment & Plan Assessment & Plan (1) Annual visit for general adult medical examination with abnormal findings: Code(s): Z00.01 - Encounter for general adult medical examination with abnormal findings Plan: Will check appropriate labs. Continue with regular dental visit every 6 months and regular eye exams, at least every 2 years. Take adequate calcium in diet and vitamin-D 3 at 2000 IU per cap once a day, in addition to weight-bearing exercises to help maintain good muscle tone and weight control. Instructed to do self-breast exam, and recommended to get yearly mammogram, starting at age 40 , already scheduled at [facility]. She is up-to-date with all her vaccinations (2) Subclinical hypothyroidism: Code(s): E03.8 - Other specified hypothyroidism Category: Medical Plan: Followed By Endocrine Clinic at [facility], currently on levothyroxine 50 mcg once a day except for Wednesdays when she takes 75 mcg (3) Vitamin D deficiency: Code(s): E55.9 - Vitamin D deficiency, unspecified Category: Medical Plan: Will check vitamin-D (4) Encounter for counseling regarding advance directives: Code(s): Z71.89 - Other specified counseling Plan: Initiated the conversation about Advanced Directives. Advanced Directives help patients prepare for current and future decisions about their medical treatment and place of care. Discussed with patient that it is a process where a patients current condition and prognosis are reviewed, their wishes for information regarding their illness are elicited, and likely medical dilemmas are presented and options discussed. Healthcare proxy form completed today. The form can be amended as needed, reviewed yearly and make changes as needed Orders: Orders Lipid Panel Today E55.9 - Vitamin D deficiency, unspecified, Z00.01 - Encounter for general adult medical examination with abnormal findings, Z13.1 - Encounter for screening for diabetes mellitus, Z13.220 - Encounter for screening for lipoid disorders, Z71.89 - Other specified counseling Alanine Aminotransferase Today E55.9 - Vitamin D deficiency, unspecified, Z00.01 - Encounter for general adult medical examination with abnormal findings, Z13.1 - Encounter for screening for diabetes mellitus, Z13.220 - Encounter for screening for lipoid disorders, Z71.89 - Other specified counseling Vitamin D 25-OH Total Today E55.9 - Vitamin D deficiency, unspecified, Z00.01 - Encounter for general adult medical examination with abnormal findings, Z13.1 - Encounter for screening for diabetes mellitus, Z13.220 - Encounter for screening for lipoid disorders, Z71.89 - Other specified counseling Aspartate Amino Transferase Today E55.9 - Vitamin D deficiency, unspecified, Z00.01 - Encounter for general adult medical examination with abnormal findings, Z13.1 - Encounter for screening for diabetes mellitus, Z13.220 - Encounter for screening for lipoid disorders, Z71.89 - Other specified counseling Glucose Fasting Today E55.9 - Vitamin D deficiency, unspecified, Z00.01 - Encounter for general adult medical examination with abnormal findings, Z13.1 - Encounter for screening for diabetes mellitus, Z13.220 - Encounter for screening for lipoid disorders, Z71.89 - Other specified counseling
[2024-12-04 12:32] VITALS: BP 100/70; PULSE 63; RESP 16; TEMP 36.6; O2SAT 100; BMI 25.4
== END 2024-12-04 13:04 | disposition home or self-care (01) ==
LOC: HO.HMCC 11:51
PROVIDERS: PCP Internal Medicine; Visit Provider Internal Medicine
DX: Z00.01 Encounter for general adult medical examination with abnormal findings (principal); E03.8 Other specified hypothyroidism; E55.9 Vitamin D deficiency, unspecified; Z71.89 Other specified counseling; Z00.00 Encounter for general adult medical examination without abnormal findings

== ENCOUNTER 2024-12-04 11:50 | Outpatient (REF) | payer BC, SELFPAY ==
[2024-12-04 16:59] LABS: Alanine Aminotransferase 15 U/L (0-31); Aspartate Amino Transferase 25 U/L (5-31); Cholesterol 191 mg/dL (<200); Glucose Fasting 93 mg/dL (60-99); HDL Cholesterol 74 mg/dL (>40); LDL Cholesterol Calculated 110 mg/dL (<100); Triglycerides 37 mg/dL (<150)
[2024-12-04 17:16] LABS: Vitamin D 25-OH Total 56.1 ng/mL (>30)
== END 2024-12-04 11:51 | disposition home or self-care (01) ==
LOC: HO.HMGCLDS 11:50
PROVIDERS: PCP Internal Medicine; Visit Provider Internal Medicine
DX: Z00.01 Encounter for general adult medical examination with abnormal findings (principal); E03.8 Other specified hypothyroidism; E55.9 Vitamin D deficiency, unspecified; Z71.89 Other specified counseling; Z13.220 Encounter for screening for lipoid disorders; Z13.1 Encounter for screening for diabetes mellitus
CPT/HCPCS: 36415; 80061; 82306; 82947; 84450; 84460; 96127